=== PATIENT | male | born 1945 | race Caucasian/White ===

== ENCOUNTER 2017-02-13 08:27 | Day surgery (SDC) | payer OTHER ==
[2017-02-13 09:12] VITALS: BMI 27.1
[2017-02-13 10:36] VITALS: TEMP 97.6
[2017-02-13 11:49] VITALS: BP 145/80; PULSE 61
--- NOTE | 2017-02-14 12:47 | PATH ---
Surgical Pathology Report Patient Name: BRIDGETTE LANDAVERDE [facility]. Rec. #: [id number] /Age/Gender: 1945 (Age: 71) / M Account: [id number] Location: U-ENDOSCOPY Taken: 02/13/2017 Received: 02/13/2017 Reported: 02/14/2017 Physicians: Cara Trotter M.D. Specimen(s) Received A: PROXIMAL TRANSVERSE COLON POLYP B: RIGHT COLON POLYPS C: BX APPENDICEAL POLYP D: ILEOCECAL VALVE POLYP E: BX HEPATIC FLEXURE POLYPS F: BX DISTAL TRANSVERSE POLYPS G: BX SIGMOID ANASTOMOSIS Clinical History Colon cancer surveillance Colon polyps, diverticulosis Final Diagnosis A. COLON, PROXIMAL TRANSVERSE, POLYP, POLYPECTOMY: TUBULAR ADENOMA. B. 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 C. APPENDICIAL POLYP, BIOPSY: FRAGMENTS OF INFLAMMATORY/POSTINFLAMMATORY-TYPE POLYP. D. ILEOCECAL VALVE, POLYP, POLYPECTOMY: FRAGMENTS OF TUBULAR ADENOMA. E. COLON, HEPATIC FLEXURE, POLYPS, BIOPSY AND POLYPECTOMY: FRAGMENTS OF TUBULAR ADENOMA. F. COLON, DISTAL TRANSVERSE, POLYP, BIOPSY: POLYPOID FRAGMENTS OF COLONIC MUCOSA WITH REACTIVE LYMPHOID AGGREGATES IN SURFACE HYPERPLASTIC CHANGE. G. COLON, SIGMOID ANASTOMOSIS, BIOPSY: COLONIC MUCOSA WITH MILD ARCHITECTURAL DISARRAY CONSISTENT WITH ANASTOMOSIS SITE. NO ADENOMA/DYSPLASIA IDENTIFIED. Electronically Signed Filippo Vela M.D. Gross Description A. Received in formalin, labeled "proximal transverse colon polyp" is a oviedo, irregular portion of soft tissue measuring 0.4 cm in greatest dimension. The specimen is submitted in toto in one cassette. B. Received in formalin, labeled "right colon polyps" is a oveido, irregular portion of soft tissue measuring 0.7 cm in greatest dimension. The specimen is submitted in toto in one cassette. C. Received in formalin, labeled "biopsy appendiceal polyp" are 4 oviedo, irregular portions of soft tissue ranging from 0.1-0.5 cm in greatest dimension. The specimens are submitted in toto in one cassette. D. Received in formalin, labeled "ileocecal valve polyp" are 4 oviedo, irregular portions of soft tissue ranging from 0.1-0.4 cm. in greatest dimension. The specimens are submitted in toto in one cassette. E. Received in formalin, labeled "biopsy hepatic flexure polyps" are 5 oviedo, irregular portions of soft tissue ranging from 0.1-0.3 cm in greatest dimension. The specimens are submitted in toto in one cassette. F. Received in formalin, labeled "biopsy distal transverse colon polyp" are 4 oviedo, irregular portions of soft tissue averaging 0.2 cm in greatest dimension. The specimens are submitted in toto in one cassette. G. Received in formalin, labeled "biopsy sigmoid anastomosis" are 4 oviedo, irregular portions of soft tissue ranging from 0.2-0.5 cm in greatest dimension. The specimens are submitted in toto in one cassette. 02/13/201702/13/2017
== END 2017-02-13 11:40 | disposition home or self-care (01) ==
LOC: JASU-ENDO 08:27
PROVIDERS: ATTEND Internal Medicine Gastroenterology
PROC: 0DBC8ZX Excision of Ileocecal Valve, Via Natural or Artificial Opening Endoscopic, Diagnostic (ICD-10-PCS; 2017-02-13)
PROC: 0DBK8ZX Excision of Ascending Colon, Via Natural or Artificial Opening Endoscopic, Diagnostic (ICD-10-PCS; 2017-02-13)
PROC: 0DBL8ZX Excision of Transverse Colon, Via Natural or Artificial Opening Endoscopic, Diagnostic (ICD-10-PCS; 2017-02-13)
PROC: 0DBE8ZX Excision of Large Intestine, Via Natural or Artificial Opening Endoscopic, Diagnostic (ICD-10-PCS; 2017-02-13)
PROC: 0DBN8ZX Excision of Sigmoid Colon, Via Natural or Artificial Opening Endoscopic, Diagnostic (ICD-10-PCS; 2017-02-13)
PROC: 0DBL8ZX Excision of Transverse Colon, Via Natural or Artificial Opening Endoscopic, Diagnostic (ICD-10-PCS; principal; 2017-02-13 09:30)
DX: Z12.11 Encounter for screening for malignant neoplasm of colon (principal); Z85.038 Personal history of other malignant neoplasm of large intestine; D12.2 Benign neoplasm of ascending colon; D12.3 Benign neoplasm of transverse colon; K63.5 Polyp of colon; K64.8 Other hemorrhoids
CPT/HCPCS: 88305-TC

== ENCOUNTER 2019-07-08 08:26 | Day surgery (SDC) | payer OTHER ==
[2019-07-05 16:10] VITALS: BMI 27.1
[2019-07-08 11:01] VITALS: TEMP 97.7
[2019-07-08 11:27] VITALS: PULSE 63
[2019-07-08 15:06] VITALS: BP 140/76
--- NOTE | 2019-07-09 18:47 | PATH ---
Surgical Pathology Report Patient Name: BRIDGETTE LANDAVERDE [facility]. Rec. #: [id number] /Age/Gender: 1945 (Age: 74) / M Account: [id number] Location: U-ENDOSCOPY Taken: 07/08/2019 Received: 07/08/2019 Reported: 07/09/2019 Physicians: Cara Trotter M.D. Specimen(s) Received POLYP CECUM Clinical History Adenoma surveillance Postoperative diagnosis: Diverticulosis, cecal polyp Final Diagnosis CECUM POLYP, POLYPECTOMY: TUBULAR ADENOMA. Electronically Signed Burt Montenegro M.D. Gross Description Received in formalin, labeled "polyp cecum" is a oviedo, irregular portion of soft tissue measuring 0.2 cm. in greatest dimension. The specimen is submitted in toto in one cassette. 07/08/201907/08/2019
== END 2019-07-08 11:45 | disposition home or self-care (01) ==
LOC: JASU-ENDO 08:26
PROVIDERS: ATTEND Internal Medicine Gastroenterology
PROC: 0DBH8ZX Excision of Cecum, Via Natural or Artificial Opening Endoscopic, Diagnostic (ICD-10-PCS; principal; 2019-07-08 09:30)
DX: Z86.010 Personal history of colon polyps (principal); D12.0 Benign neoplasm of cecum; I10 Essential (primary) hypertension; E78.5 Hyperlipidemia, unspecified; E11.9 Type 2 diabetes mellitus without complications; N40.0 Benign prostatic hyperplasia without lower urinary tract symptoms; K57.30 Diverticulosis of large intestine without perforation or abscess without bleeding; K64.8 Other hemorrhoids
CPT/HCPCS: 88305-TC

== ENCOUNTER 2022-12-06 08:15 | Day surgery (SDC) | payer OTHER ==
[2022-12-05 15:34] VITALS: BMI 25.4
[2022-12-06 10:08] VITALS: BP 120/74; PULSE 71; TEMP 97.9
[2022-12-06 10:31] VITALS: RESP 18
== END 2022-12-06 10:39 | disposition home or self-care (01) ==
LOC: FASU-ENDO 08:15
PROVIDERS: ATTEND Internal Medicine Gastroenterology
PROC: 0DBL8ZX Excision of Transverse Colon, Via Natural or Artificial Opening Endoscopic, Diagnostic (ICD-10-PCS; 2022-12-06)
PROC: 0DBK8ZX Excision of Ascending Colon, Via Natural or Artificial Opening Endoscopic, Diagnostic (ICD-10-PCS; principal; 2022-12-06 09:26)
DX: Z12.11 Encounter for screening for malignant neoplasm of colon (principal); D12.3 Benign neoplasm of transverse colon; D12.0 Benign neoplasm of cecum; K64.1 Second degree hemorrhoids; K57.30 Diverticulosis of large intestine without perforation or abscess without bleeding; Z85.038 Personal history of other malignant neoplasm of large intestine
CPT/HCPCS: 82962; 88305-TC

== ENCOUNTER 2023-12-24 07:08 | Inpatient (IN) | payer OTHER ==
[2023-12-24 09:26] LABS: EOS % 1.2 % (0-4.5); HEMATOCRIT 34.8 % (35.4-49); HEMOGLOBIN 11.8 GM/dL (11.7-16.9); INR 1.68 (0.83-1.09); LYMPH % 8.5 % (8-40); MCHC 33.9 g/dl (32.0-35.9); MEAN CELL VOLUME 85.5 fl (80-96); MONO % 9.7 % (3.8-10.2); NEUT % 79.6 % (42.8-82.8); PLATELET COUNT 264 10^3/uL (134-434); PROTHROMBIN TIME (PATIENT) 19.4 SEC (9.7-13.0); RBC 4.07 M/mm3 (4.00-5.60); WHITE BLOOD COUNT 11.2 K/mm3 (4.0-10.0)
[2023-12-24 09:29] LABS: ACTIVATED PTT 27.9 SECONDS (25.2-36.5)
[2023-12-24 09:56] LABS: POTASSIUM 3.8 mmol/L (3.5-5.1)
[2023-12-24 09:58] LABS: ALBUMIN 2.8 g/dl (3.4-5.0); CALCIUM 8.6 mg/dL (8.5-10.1); MAGNESIUM 2.3 mg/dL (1.8-2.4)
[2023-12-24 09:59] LABS: BLOOD UREA NITROGEN 29.9 mg/dL (7-18)
[2023-12-24 10:01] LABS: CREATININE 2.2 mg/dL (0.55-1.3)
[2023-12-24 10:03] LABS: BILIRUBIN,TOTAL 0.4 mg/dL (0.2-1); TOT PROT 6.6 g/dl (6.4-8.2)
[2023-12-24] MEDS: LACTATED RINGERS SOLUTION 1000 ML INFUS.BAG IV ONE (10:41)
[2023-12-24] MEDS ORDERED: ACETAMINOPHEN 500 MG TABLET (FP) ONE (10:43)
[2023-12-24] MEDS: ACETAMINOPHEN 325 MG TABLET (FP) PO ONE (10:48)
[2023-12-24] MEDS: SODIUM CHLORIDE 0.45% 1,000 ML IV SCH (12:08)
[2023-12-24] MEDS: INSULIN ASPART SLIDING SCALE (NOVOLOG) 1 VIAL SQ SCH (12:42)
[2023-12-24] MEDS ORDERED: ATORVASTATIN CA 10 MG TABLET (FP) PO SCH (22:00)
[2023-12-24] MEDS ORDERED: INSULIN (NOVOLOG) ASPART 100 UNITS/ML 10ML VIAL ONE (22:20)
[2023-12-24] MEDS: APIXABAN 5 MG TABLET PO SCH (22:22)
[2023-12-24] MEDS: ATORVASTATIN CA 20 MG TABLET (FP) PO SCH (22:24)
[2023-12-24] MEDS: LATANOPROST 0.005% OPHTH SOLN 2.5ML BOTTLE OD SCH (22:43)
[2023-12-25 08:18] LABS: BASO % 0.7 % (0-2.0); HEMATOCRIT 32.9 % (35.4-49); MCH 28.9 pg (25.7-33.7); MCHC 33.5 g/dl (32.0-35.9); MEAN CELL VOLUME 86.4 fl (80-96); MONO % 9.9 % (3.8-10.2); NEUT % 79.4 % (42.8-82.8); PLATELET COUNT 263 10^3/uL (134-434); RBC 3.81 M/mm3 (4.00-5.60); WHITE BLOOD COUNT 10.1 K/mm3 (4.0-10.0)
[2023-12-25 08:43] LABS: POTASSIUM 3.3 mmol/L (3.5-5.1)
[2023-12-25 08:58] LABS: CALCIUM 8.1 mg/dL (8.5-10.1)
[2023-12-25 08:59] LABS: ALBUMIN 2.6 g/dl (3.4-5.0); BLOOD UREA NITROGEN 16.4 mg/dL (7-18)
[2023-12-25] MEDS: TAMSULOSIN HCL 0.4 MG CAP PO SCH (09:01)
[2023-12-25 09:02] LABS: CREATININE 0.8 mg/dL (0.55-1.3)
[2023-12-25 09:03] LABS: BILIRUBIN,TOTAL 0.7 mg/dL (0.2-1)
[2023-12-25 09:04] LABS: TOT PROT 5.7 g/dl (6.4-8.2)
[2023-12-25] MEDS: FINASTERIDE 5 MG TABLET (FP) PO SCH (09:05)
[2023-12-25] MEDS: AMIODARONE HCL 200 MG TABLET PO SCH (09:05)
[2023-12-25] MEDS: amLODIPine BESYLATE 5 MG TABLET (FP) PO SCH (09:05)
[2023-12-25] MEDS ORDERED: PATIENT'S OWN MEDICATION (NON-FORMULARY) (Docosahexanoic Acid/Epa [Fish Oil Softgel] 1 EAC PO SCH (10:00)
[2023-12-25] MEDS ORDERED: INSULIN (NOVOLOG) ASPART 100 UNITS/ML 10ML VIAL ONE ×3 (11:16→21:37)
[2023-12-25 16:35] LABS: EPI CELLS 1 /uL (0-25.1); HYALINE CASTS 1 /uL (0-3.1); URINE APPEARANCE CLEAR; URINE BACTERIA 1192 /uL (0-1359); URINE BILIRUBIN NEGATIVE (NEGATIVE); URINE COLOR YELLOW; URINE GLUCOSE (UA) NEGATIVE (NEGATIVE); URINE KETONE NEGATIVE (NEGATIVE); URINE LEUK ESTERASE 1+ (NEGATIVE); URINE NITRITE NEGATIVE (NEGATIVE); URINE PROTEIN TRACE (NEGATIVE); URINE RBC 23 /uL (0-23.9); URINE UROBILINOGEN 0.2 mg/dL (0.2-1.0); URINE WBC 445 /uL (0-25.8)
[2023-12-26 07:39] LABS: BASO % 0.6 % (0-2.0); EOS % 0.6 % (0-4.5); HEMATOCRIT 34.4 % (35.4-49); HEMOGLOBIN 11.4 GM/dL (11.7-16.9); LYMPH % 6.2 % (8-40); MCH 28.5 pg (25.7-33.7); MCHC 33.1 g/dl (32.0-35.9); MEAN CELL VOLUME 85.9 fl (80-96); MEAN PLT VOLUME 7.7 fl (7.5-11.1); MONO % 8.5 % (3.8-10.2); NEUT % 84.1 % (42.8-82.8); PLATELET COUNT 296 10^3/uL (134-434); RBC 4.01 M/mm3 (4.00-5.60); RDW 13.5 % (11.9-15.9); WHITE BLOOD COUNT 13.3 K/mm3 (4.0-10.0)
[2023-12-26 07:51] LABS: POTASSIUM 3.4 mmol/L (3.5-5.1)
[2023-12-26 07:55] LABS: CALCIUM 8.1 mg/dL (8.5-10.1)
[2023-12-26 07:56] LABS: ALBUMIN 2.6 g/dl (3.4-5.0); BLOOD UREA NITROGEN 19.6 mg/dL (7-18)
[2023-12-26 08:00] LABS: BILIRUBIN,TOTAL 0.7 mg/dL (0.2-1); TOT PROT 6.1 g/dl (6.4-8.2)
[2023-12-26] MEDS ORDERED: INSULIN (NOVOLOG) ASPART 100 UNITS/ML 10ML VIAL ONE ×2 (12:56→17:44)
[2023-12-26] MEDS: ACETAMINOPHEN 325 MG TABLET (FP) PO PRN (18:46)
[2023-12-27] MEDS ORDERED: INSULIN (NOVOLOG) ASPART 100 UNITS/ML 10ML VIAL ONE ×2 (11:43→21:01)
[2023-12-27 13:23] VITALS: BMI 24.0
[2023-12-28] MEDS ORDERED: INSULIN (NOVOLOG) ASPART 100 UNITS/ML 10ML VIAL ONE ×2 (11:28→16:45)
[2023-12-29 08:29] LABS: POTASSIUM 3.7 mmol/L (3.5-5.1)
[2023-12-29 08:32] LABS: CALCIUM 7.9 mg/dL (8.5-10.1)
[2023-12-29 08:33] LABS: ALBUMIN 2.4 g/dl (3.4-5.0); BLOOD UREA NITROGEN 21.9 mg/dL (7-18)
[2023-12-29 08:36] LABS: BILIRUBIN,TOTAL 0.6 mg/dL (0.2-1); CREATININE 0.8 mg/dL (0.55-1.3)
[2023-12-29] MEDS ORDERED: INSULIN (NOVOLOG) ASPART 100 UNITS/ML 10ML VIAL ONE (11:02)
[2023-12-29 13:46] VITALS: BP 134/77; PULSE 73; RESP 19; TEMP 98.8
== END 2023-12-29 15:17 | DRG 683 ==
LOC: JER 07:08 → JERBED 10:26 → J7W 13:54 → OBSVTOIN 12-26 13:02
PROVIDERS: ADMIT Internal Medicine; ATTEND Internal Medicine
DX: N17.9 Acute kidney failure, unspecified (principal); G91.2 (Idiopathic) normal pressure hydrocephalus; I10 Essential (primary) hypertension; E78.5 Hyperlipidemia, unspecified; E11.9 Type 2 diabetes mellitus without complications; I48.91 Unspecified atrial fibrillation; H40.9 Unspecified glaucoma; E86.0 Dehydration; N40.0 Benign prostatic hyperplasia without lower urinary tract symptoms; R29.6 Repeated falls; Z79.84 Long term (current) use of oral hypoglycemic drugs
CPT/HCPCS: 36415; 70450-TC; 71045-TC-FY; 72125-TC; 72170-TC-FY; 73030-TC-RT-FY; 80053; 81003; 82962; 83735; 84443; 84484; 85025; 85610; 85730; 87086; 87186; 87635; 93005; 93010; 93306-TC; 97116-GP; 97161-GP; 99285-25; G0378

== ENCOUNTER 2024-01-19 14:09 | Emergency (ER) | payer OTHER ==
[2024-01-19] MEDS ORDERED: ATROPINE SULFATE 1 MG/10 ML DISP.SYRIN ONE (14:21)
[2024-01-19] MEDS ORDERED: CALCIUM GLUCONATE 10% - 1,000 MG/10 ML VIAL ONE ×2 (14:21→14:54)
[2024-01-19] MEDS ORDERED: INSULIN REGULAR HUMAN 100 UNITS/ML *VIAL ONE (14:41)
[2024-01-19] MEDS ORDERED: DEXTROSE 50%-WATER 25 GM/50 ML DISP.SYRIN ONE (14:41)
[2024-01-19] MEDS ORDERED: GLUCAGON 1 MG KIT ONE (14:41)
[2024-01-19 15:05] VITALS: TEMP 98.4; BMI 28.0
[2024-01-19 15:06] VITALS: RESP 0
[2024-01-19] MEDS: ATROPINE SULFATE 1 MG/10 ML DISP.SYRIN IVPUSH ONE (15:06)
[2024-01-19] MEDS: CALCIUM GLUCONATE 10% - 1,000 MG/10 ML VIAL IVPUSH ONE ×2 (15:06→15:18)
[2024-01-19] MEDS: INSULIN REGULAR HUMAN 100 UNITS/ML *VIAL IVPUSH ONE (15:06)
[2024-01-19] MEDS: GLUCAGON 1 MG KIT IVPUSH ONE (15:06)
[2024-01-19] MEDS: DEXTROSE 50%-WATER - 25 GM/50 ML VIAL IVPUSH ONE (15:06)
[2024-01-19] MEDS: ONDANSETRON 4 MG/2 ML VIAL IVPUSH ONE (15:06)
[2024-01-19 15:15] VITALS: BP 0/0; PULSE 0
[2024-01-19 16:26] LABS: VENOUS BASE EXCESS -13.4 mmol/L (-2-2); VENOUS O2 SATURATION 57.1 % (70-80); VENOUS PCO2 28.1 mmHg (38-52); VENOUS PH 7.257 (7.310-7.410)
[2024-01-19 16:29] LABS: HEMATOCRIT 33.7 % (35.4-49); HEMOGLOBIN 10.8 GM/dL (11.7-16.9); MCH 27.4 pg (25.7-33.7); MCHC 32.1 g/dl (32.0-35.9); MEAN CELL VOLUME 85.4 fl (80-96); MEAN PLT VOLUME 9.2 fl (7.5-11.1); PLATELET COUNT 365 10^3/uL (134-434); RBC 3.94 M/mm3 (4.00-5.60); RDW 14.7 % (11.9-15.9); WHITE BLOOD COUNT 29.8 K/mm3 (4.0-10.0)
[2024-01-19 16:36] LABS: INR 2.77 (0.83-1.09); PROTHROMBIN TIME (PATIENT) 30.4 SEC (9.7-13.0)
[2024-01-19 16:39] LABS: ACTIVATED PTT 30.7 SECONDS (25.2-36.5)
[2024-01-19 16:53] LABS: CHLORIDE 98 mmol/L (98-107); POTASSIUM 5.7 mmol/L (3.5-5.1); SODIUM 131 mmol/L (136-145)
[2024-01-19 16:57] LABS: ALBUMIN 1.9 g/dl (3.4-5.0); ANION GAP 19 mmol/L (4-13); BLOOD UREA NITROGEN 68.5 mg/dL (7-18); CALCIUM 9.8 mg/dL (8.5-10.1); CO2 14 mmol/L (21-32); GLUCOSE,RANDOM 356 mg/dL (74-106)
[2024-01-19 17:01] LABS: BILIRUBIN,TOTAL 0.8 mg/dL (0.2-1); SGOT/AST 88 U/L (15-37); TOT PROT 6.6 g/dl (6.4-8.2)
[2024-01-19 17:04] LABS: ALK PHOS 157 U/L (45-117); LACTIC ACID 8.6 mmol/L (0.4-2.0)
[2024-01-19 17:06] LABS: SGPT/ALT 107 U/L (13-61)
[2024-01-19 17:32] LABS: OVALOCYTE 1+
[2024-01-19 17:36] LABS: PLATELET ESTIMATE ADEQUATE
== END 2024-01-19 19:40 | disposition expired ==
LOC: JER 14:09
PROC: 3E033GC Introduction of Other Therapeutic Substance into Peripheral Vein, Percutaneous Approach (ICD-10-PCS; principal; 2024-01-19)
PROC: 3E033GC Introduction of Other Therapeutic Substance into Peripheral Vein, Percutaneous Approach (ICD-10-PCS; 2024-01-19)
PROC: 3E033GC Introduction of Other Therapeutic Substance into Peripheral Vein, Percutaneous Approach (ICD-10-PCS; 2024-01-19)
PROC: 3E033GC Introduction of Other Therapeutic Substance into Peripheral Vein, Percutaneous Approach (ICD-10-PCS; 2024-01-19)
PROC: 3E0337Z Introduction of Electrolytic and Water Balance Substance into Peripheral Vein, Percutaneous Approach (ICD-10-PCS; 2024-01-19)
DX: R06.03 Acute respiratory distress (principal); R41.82 Altered mental status, unspecified; I46.9 Cardiac arrest, cause unspecified; Z20.822 Contact with and (suspected) exposure to COVID-19
CPT/HCPCS: 0241U-QW; 36415; 80053; 82550; 82803; 82962; 83605; 84484; 85025; 85610; 85730; 86850; 86900; 86901; 93005; 93010; 99284-25